=== PATIENT | male | born 1960 | race Caucasian/White ===

== ENCOUNTER 2020-05-19 12:20 | Outpatient (REF) | payer BC, SELFPAY ==
--- NOTE | 2020-05-19 12:37 | XR_ITS ---
EXAMINATION: XR ANKLE, RIGHT CLINICAL INFORMATION: Right ankle pain COMPARISON: None TECHNIQUE: AP, lateral, and mortise views of the right ankle. FINDINGS: There is no fracture or dislocation. The ankle mortise is congruent. No ankle joint effusion. Small plantar heel spur. The soft tissues are unremarkable. IMPRESSION: Small plantar heel spur. Otherwise unremarkable appearance of the right ankle.
== END 2020-05-19 12:21 | disposition home or self-care (01) ==
LOC: HO.XRAY 12:20
PROVIDERS: PCP Internal Medicine; Visit Provider Neuromusculoskeletal Medicine, Sports Medicine
DX: M25.571 Pain in right ankle and joints of right foot (principal)
CPT/HCPCS: 73610

== ENCOUNTER 2021-04-20 11:10 | Outpatient (REF) | payer BC, SELFPAY ==
[2021-04-20 12:40] LABS: MANUAL DIFF FLAG NO
[2021-04-20 12:55] LABS: Basophils Percent Auto 0.5 % (0-2); Eosinophils Absolute Auto 0.1 X10*3/uL (0.0-0.4); Eosinophils Percent Auto 2.2 % (0-4); Hematocrit 43.4 % (42-52); Hemoglobin 14.8 g/dl (14.0-18.0); Imm Gran Abs Auto 0.01 X10*3/uL (0.00-0.03); Imm Gran Pct Auto 0.2 % (0.0-0.4); Lymphocytes Absolute Auto 1.3 X10*3/uL (1.2-4.9); Lymphocytes Percent Auto 32.8 % (20-40); Mean Corpuscular HGB Conc 34.1 g/dl (31.0-36.0); Mean Corpuscular Hemoglobin 30.6 pg (27.0-33.0); Mean Corpuscular Volume 89.7 fL (80-98); Mean Platelet Volume 9.2 fL (9.4-12.4); Monocytes Absolute Auto 0.4 X10*3/uL (0.1-1.2); Monocytes Percent Auto 8.9 % (2-11); Neutrophils Absolute Auto 2.3 X10*3/uL (2.0-8.3); Neutrophils Percent Auto 55.4 % (45-73); Platelet Count 304 X10*3/uL (160-400); Red Blood Count 4.84 X10*6/uL (4.60-5.80); Red Cell Distribution Width 12.2 % (11.0-16.0); White Blood Count 4.1 X10*3/uL (4.8-10.8)
[2021-04-20 14:00] LABS: Alanine Aminotransferase 28 U/L (0-40); Albumin Level 4.6 g/dL (3.5-5.0); Alkaline Phosphatase 69 U/L (39-117); Anion Gap 12 (12-20); Aspartate Amino Transferase 23 U/L (5-37); Blood Urea Nitrogen 13 mg/dL (9-16); Calcium 9.3 mg/dL (8.4-10.2); Carbon Dioxide 27 mmol/L (22-29); Chloride 104 mmol/L (96-108); Cholesterol 181 mg/dL; Estimated Glomerular Filt Rate > 60; Glucose Random 88 mg/dL (60-115); HDL Cholesterol 60 mg/dL; LDL Cholesterol Calculated 111 mg/dl; Potassium 4.9 mmol/L (3.3-5.1); Sodium 138 mmol/L (135-145); Total Protein 7.4 g/dL (6.5-8.0); Triglycerides 52 mg/dL
[2021-04-20 14:37] LABS: Prostate Specific Antigen 2.83 ng/mL (<0.05-4.0)
== END 2021-04-20 11:11 | disposition home or self-care (01) ==
LOC: HO.LAB 11:10
PROVIDERS: PCP Internal Medicine; Visit Provider Internal Medicine
DX: Z12.5 Encounter for screening for malignant neoplasm of prostate (principal); D12.6 Benign neoplasm of colon, unspecified; I34.0 Nonrheumatic mitral (valve) insufficiency; E78.00 Pure hypercholesterolemia, unspecified
CPT/HCPCS: 36415; 80053; 80061; 84153; 85025

== ENCOUNTER 2022-02-12 11:25 | Outpatient (REF) | payer BC, SELFPAY ==
[2022-01-10 13:15] VITALS: BP 114/62; BP 118/62
[2022-02-06 08:09] VITALS: BP 114/54; BMI 25.7
[2022-02-12 13:47] LABS: Alanine Aminotransferase 26 U/L (0-40); Cholesterol 108 mg/dL; HDL Cholesterol 51 mg/dL; LDL Cholesterol Calculated 51 mg/dl; Triglycerides 30 mg/dL
== END 2022-02-12 11:26 | disposition home or self-care (01) ==
LOC: HO.LAB 11:25
PROVIDERS: PCP Internal Medicine; Visit Provider Internal Medicine Cardiovascular Disease
DX: I25.10 Atherosclerotic heart disease of native coronary artery without angina pectoris (principal)
CPT/HCPCS: 36415; 80061; 84460

== ENCOUNTER 2022-07-19 12:43 | Outpatient (REF) | payer BC, SELFPAY ==
[2022-04-12 10:13] VITALS: BP 100/62; BP 104/62; BP 96/56; BMI 25.4
[2022-07-19 13:00] LABS: MANUAL DIFF FLAG NO
[2022-07-19 13:29] LABS: Basophils Percent Auto 0.6 % (0-2); Eosinophils Absolute Auto 0.1 X10*3/uL (0.0-0.4); Eosinophils Percent Auto 2.3 % (0-4); Hematocrit 42.2 % (42.0-52.0); Hemoglobin 14.7 g/dl (14.0-18.0); Imm Gran Abs Auto 0.01 X10*3/uL (0.00-0.03); Imm Gran Pct Auto 0.2 % (0.0-0.4); Lymphocytes Absolute Auto 1.5 X10*3/uL (1.2-4.9); Lymphocytes Percent Auto 31.6 % (20-40); Mean Corpuscular HGB Conc 34.8 g/dl (31.0-36.0); Mean Corpuscular Hemoglobin 31.7 pg (27.0-33.0); Mean Corpuscular Volume 90.9 fL (80.0-98.0); Mean Platelet Volume 9.3 fL (9.4-12.4); Monocytes Absolute Auto 0.4 X10*3/uL (0.1-1.2); Monocytes Percent Auto 7.4 % (2-11); Neutrophils Absolute Auto 2.7 x10*3/uL (2.0-8.3); Neutrophils Percent Auto 57.9 % (45-73); Platelet Count 279 X10*3/uL (160-400); Red Blood Count 4.64 X10*6/uL (4.60-5.80); Red Cell Distribution Width 12.5 % (11.0-16.0); White Blood Count 4.7 X10*3/uL (4.8-10.8)
[2022-07-19 15:20] LABS: Alanine Aminotransferase 25 U/L (0-40); Albumin Level 4.8 g/dL (3.5-5.0); Alkaline Phosphatase 76 U/L (39-117); Anion Gap 12 (12-20); Aspartate Amino Transferase 21 U/L (5-37); Bilirubin Total 0.9 mg/dL (0.0-1.0); Blood Urea Nitrogen 14 mg/dL (9-16); Calcium 9.8 mg/dL (8.4-10.2); Carbon Dioxide 28 mmol/L (22-29); Chloride 105 mmol/L (96-108); Cholesterol 125 mg/dL; Estimated Glomerular Filt Rate > 60; Glucose Random 94 mg/dL (60-115); HDL Cholesterol 54 mg/dL; LDL Cholesterol Calculated 64 mg/dl; Potassium 4.8 mmol/L (3.3-5.1); Sodium 140 mmol/L (135-145); Thyroid Stimulating Hormone 0.71 uIU/mL (0.32-4.0); Total Protein 7.6 g/dL (6.5-8.0); Triglycerides 35 mg/dL
== END 2022-07-19 12:44 | disposition home or self-care (01) ==
LOC: HO.LAB 12:43
PROVIDERS: PCP Internal Medicine; Visit Provider Internal Medicine
DX: I25.10 Atherosclerotic heart disease of native coronary artery without angina pectoris (principal); E78.00 Pure hypercholesterolemia, unspecified; Z12.5 Encounter for screening for malignant neoplasm of prostate
CPT/HCPCS: 36415; 80053; 80061; 84153; 84443; 85025

== ENCOUNTER 2023-03-07 13:45 | Outpatient (REF) | payer BC, SELFPAY ==
[2022-04-12 10:13] VITALS: BP 100/62; BP 104/62; BP 96/56; BMI 25.4
[2023-03-07 13:59] LABS: MANUAL DIFF FLAG NO
[2023-03-07 15:06] LABS: Basophils Percent Auto 0.6 % (0-2); Eosinophils Absolute Auto 0.1 X10*3/uL (0.0-0.4); Eosinophils Percent Auto 2.4 % (0-4); Hematocrit 40.4 % (42.0-52.0); Imm Gran Abs Auto 0.01 X10*3/uL (0.00-0.03); Imm Gran Pct Auto 0.2 % (0.0-0.4); Lymphocytes Absolute Auto 1.4 X10*3/uL (1.2-4.9); Lymphocytes Percent Auto 28.2 % (20-40); Mean Corpuscular HGB Conc 34.7 g/dl (31.0-36.0); Mean Corpuscular Hemoglobin 31.2 pg (27.0-33.0); Mean Platelet Volume 9.6 fL (9.4-12.4); Monocytes Absolute Auto 0.6 X10*3/uL (0.1-1.2); Monocytes Percent Auto 11.7 % (2-11); Neutrophils Absolute Auto 2.8 x10*3/uL (2.0-8.3); Neutrophils Percent Auto 56.9 % (45-73); Platelet Count 229 X10*3/uL (160-400); Red Blood Count 4.49 X10*6/uL (4.60-5.80); Red Cell Distribution Width 11.9 % (11.0-16.0)
[2023-03-07 15:19] LABS: Estimated Average Glucose 103 mg/dL; Hemoglobin A1c % 5.2 %
[2023-03-07 15:52] LABS: Alanine Aminotransferase 25 U/L (0-40); Albumin Level 4.3 g/dL (3.5-5.0); Alkaline Phosphatase 72 U/L (39-117); Anion Gap 14 (12-20); Aspartate Amino Transferase 21 U/L (5-37); Bilirubin Total 0.9 mg/dL (0.0-1.0); Blood Urea Nitrogen 10 mg/dL (9-16); Calcium 9.4 mg/dL (8.4-10.2); Carbon Dioxide 26 mmol/L (22-29); Chloride 106 mmol/L (96-108); Cholesterol 108 mg/dL; Estimated Glomerular Filt Rate > 60; Glucose Random 84 mg/dL (60-115); HDL Cholesterol 56 mg/dL; LDL Cholesterol Calculated 46 mg/dl; Potassium 3.9 mmol/L (3.3-5.1); Sodium 142 mmol/L (135-145); Total Protein 7.3 g/dL (6.5-8.0); Triglycerides 31 mg/dL
[2023-03-07 16:09] LABS: Thyroid Stimulating Hormone 0.67 uIU/mL (0.32-4.0); Vitamin D 25-OH Total 40.6 ng/mL (>30)
== END 2023-03-07 13:46 | disposition home or self-care (01) ==
LOC: HO.LAB 13:45
PROVIDERS: PCP Internal Medicine; Visit Provider Internal Medicine
DX: E78.00 Pure hypercholesterolemia, unspecified (principal); I25.10 Atherosclerotic heart disease of native coronary artery without angina pectoris; D12.6 Benign neoplasm of colon, unspecified; E55.9 Vitamin D deficiency, unspecified; R73.01 Impaired fasting glucose
CPT/HCPCS: 36415; 80053; 80061; 82306; 83036; 84443; 85025

== ENCOUNTER 2023-04-26 12:17 | Outpatient (REF) | payer BC, SELFPAY ==
[2022-04-12 10:13] VITALS: BP 100/62; BP 104/62; BP 96/56; BMI 25.4
--- NOTE | ~2023-04-26 | XR_ITS ---
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 Enthesopathy along the inferior margin of the right greater trochanter. Degenerative changes of the lumbosacral spine. Joint spaces and alignment are otherwise maintained. Soft tissues are unremarkable. XR/XR hip RT w PEL1V IMPRESSION: 1. No acute fracture or dislocation. 2. 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
--- NOTE | ~2023-04-26 | XR_ITS ---
EXAMINATION: XR HAND, RIGHT CLINICAL INFORMATION: Gradual onset worsening pain decreased range of motion COMPARISON: None available. TECHNIQUE: PA, lateral, and oblique views of the right hand. FINDINGS: No acute visible fracture or dislocation. Mild multi joint arthritic changes with joint space narrowing and subchondral cystic changes greatest at the second and third distal interphalangeal joints. Joint spaces and alignment are otherwise maintained. Soft tissues are unremarkable. XR/XR hand RT 2V IMPRESSION: 1. No acute visible fracture or dislocation. 2. Mild multi joint arthritic changes greatest at the second and third distal interphalangeal joints.
== END 2023-04-26 12:18 | disposition home or self-care (01) ==
LOC: HO.XRAY 12:17
PROVIDERS: PCP Internal Medicine; Visit Provider Neuromusculoskeletal Medicine, Sports Medicine
DX: M25.551 Pain in right hip (principal); Z13.89 Encounter for screening for other disorder
CPT/HCPCS: 73120; 73502

== ENCOUNTER 2024-04-01 12:28 | Outpatient (REF) | payer BC, SELFPAY ==
[2022-04-12 10:13] VITALS: BP 100/62; BP 104/62; BP 96/56; BMI 25.4
[2024-04-01 12:59] LABS: MANUAL DIFF FLAG NO
[2024-04-01 13:47] LABS: Basophils Percent Auto 0.7 % (0-2); Eosinophils Absolute Auto 0.1 X10*3/uL (0.0-0.4); Eosinophils Percent Auto 2.7 % (0-4); Hematocrit 40.2 % (42.0-52.0); Lymphocytes Absolute Auto 1.3 X10*3/uL (1.2-4.9); Mean Corpuscular HGB Conc 34.8 g/dl (31.0-36.0); Mean Corpuscular Hemoglobin 31.4 pg (27.0-33.0); Mean Corpuscular Volume 90.1 fL (80.0-98.0); Mean Platelet Volume 9.4 fL (9.4-12.4); Monocytes Absolute Auto 0.4 X10*3/uL (0.1-1.2); Monocytes Percent Auto 8.5 % (2-11); Neutrophils Absolute Auto 2.6 x10*3/uL (2.0-8.3); Neutrophils Percent Auto 58.1 % (45-73); Platelet Count 237 X10*3/uL (160-400); Red Blood Count 4.46 X10*6/uL (4.60-5.80); Red Cell Distribution Width 12.3 % (11.0-16.0); White Blood Count 4.5 X10*3/uL (4.8-10.8)
[2024-04-01 14:00] LABS: Estimated Average Glucose 103 mg/dL; Hemoglobin A1c % 5.2 % (<6.0)
[2024-04-01 14:08] LABS: Appearance Urine Clear; Color Urine Yellow; Glucose Urine UA Negative (Negative); Leukocyte Esterase Urine Negative (Negative); Nitrite Urine Negative (Negative); PH 6.5 (5.0-9.0); Specific Gravity - Urine <= 1.005 (1.005-1.025); Urine Blood Negative (Negative); Urine Ketones Negative (Negative); Urine Protein Negative (Neg-Trace)
[2024-04-01 14:24] LABS: Alanine Aminotransferase 25 U/L (0-40); Albumin Level 4.5 g/dL (3.5-5.0); Alkaline Phosphatase 76 U/L (39-117); Anion Gap 11 (12-20); Aspartate Amino Transferase 22 U/L (5-37); Bilirubin Total 0.8 mg/dL (0.0-1.0); Blood Urea Nitrogen 14 mg/dL (9-16); Calcium 9.8 mg/dL (8.4-10.2); Carbon Dioxide 29 mmol/L (22-29); Chloride 103 mmol/L (96-108); Cholesterol 118 mg/dL (<200); Estimated Glomerular Filt Rate > 60; Glucose Random 90 mg/dL (60-115); HDL Cholesterol 60 mg/dL (>40); LDL Cholesterol Calculated 52 mg/dL (<100); Potassium 4.3 mmol/L (3.3-5.1); Sodium 139 mmol/L (135-145); Total Protein 7.5 g/dL (6.5-8.0); Triglycerides 30 mg/dL (<150)
[2024-04-01 14:39] LABS: Prostate Specific Antigen 2.62 ng/mL (<0.05-4.0)
[2024-04-01 14:40] LABS: Thyroid Stimulating Hormone 0.71 uIU/mL (0.32-4.0)
== END 2024-04-01 12:29 | disposition home or self-care (01) ==
LOC: HO.LAB 12:28
PROVIDERS: PCP Internal Medicine; Visit Provider Internal Medicine
DX: I25.10 Atherosclerotic heart disease of native coronary artery without angina pectoris (principal); Z12.5 Encounter for screening for malignant neoplasm of prostate; Z13.1 Encounter for screening for diabetes mellitus
CPT/HCPCS: 36415; 80053; 80061; 81003; 83036; 84153; 84443; 85025

== ENCOUNTER 2025-04-20 10:33 | Outpatient (REF) | payer BC, SELFPAY ==
[2022-04-12 10:13] VITALS: BP 100/62; BP 104/62; BP 96/56; BMI 25.4
--- OUTSIDE RECORDS SUMMARY | 2025-04-19 10:00 | XMS_ITS | Encounter Summary ---
Author Organization [facility] Address [address] [address] Phone Care Team Providers Care Day Treatment Clinician/Art Therapist Name Role Phone Dwayne Sibley MD Primary Care Provider [phone] Dwayne Sibley MD Unavailable [phone] Ferny Novoa MD Unavailable [phone] Huber Lewis DO Unavailable Reason for Visit * Reason Comments Annual Exam Encounter Details Date Type Department Care Team (Latest Contact Info) Description 04/19/2025 10:00 AM EDT Office Visit [facility] [address] [place], [place] [id number] Dwayne Sibley MD [address] [place] [address] [email or web address] Routine general medical examination at a health care facility (Primary Dx); Need for prophylactic vaccination and inoculation against influenza; Need for pneumococcal 20-valent conjugate vaccination; Screening for prostate cancer; Pure hypercholesterolemia; Atherosclerosis of qawalangin coronary artery of qawalangin heart without angina pectoris; Impaired fasting glucose; Urinary hesitancy; Plantar fasciitis Social History Tobacco Use Types Packs/Day Years Used Date Smoking Tobacco: Former Cigarettes 0.3 12 0 02/06/1982 - 02/06/1994 Smokeless Tobacco: Never Alcohol Use Standard Drinks/Week Comments Yes 0 (1 standard drink = 0.6 oz pur e alcohol) ; 2 mixed drinks a month Child or Family Care Answer Date Record ed Do you have problems with on e of the following making it difficult for you to work, study, or receive health care? No 04/18/2025 Education Answer Date Recorded Are you interested in help w ith more adult education (for example, completing high school, GED, job training, learning the Indonesian language, technical skills, or developing parenting skills)? No 04/18/2025 Are you concerned about learning? Not on file 04/18/2025 No 04/18/2025 Yes 04/18/2025 Food Answer Date Recorded Within the past 6 months we worried whether our food would run out before we got money to buy more. Never True 04/18/2025 Within the past 6 months the food we bought just didn't last and we didn't have enough money to get more. Never True Residential Stability Answer Date Recor ded What is your housing situation today? I have lola sing 04/18/2025 How many times have you move d in the past 12 months? Zero (I did not move) 04/18/2025 Paying for Meds Answer Date Recorded Do you have trouble paying for medicines? No 04/18/2025 Paying Utility Bills Answer Date Record ed Do you have trouble paying your heating or elect ricity bill? No 04/18/2025 Transportation Answer Date Recorded Has the lack of transportati on kept you from medical appointments or from getting medications? No 02/15/2022 Unemployment Answer Date Recorded Are you currently unemployed or working on a part-time or temporary basis, and looking for work? No 02/15/2022 Digital Access Answer Date Recorded No 04/18/2025 Yes 04/18/2025 Do you have reliable internet access at home? Ye s 04/18/2025 Do you have a device (e.g., phone, tablet, computer) with a working camera? Yes 04/18/2025 Intimate Partner Violence Answer Date R ecorded Are you denied basic needs s uch as food, clothing, or medical care? No 04/18/2025 In the past 12 months have y ou been in a relationship with a person who hurts, threatens, or tries to control you? No 04/18/2025 Are you denied basic needs s uch as food, clothing, or medical care? No 04/18/2025 In the past 12 months have y ou been in a relationship with a person who hurts, threatens, or tries to control you? No 04/18/2025 Sex and Gender Information Value Date Recorded Sex Assigned at Not on file Legal Sex Male 9:45 PM EDT Gender Identity Not on file Sexual Orientation Not on file documented as of this encounter Last Filed Vital Signs Vital Sign Reading Time Taken Comments Blood Pressure 110/62 04/19/2025 10:08 AM EDT Pulse 50 04/19/2025 10:08 AM EDT Temperature 35.7 C (96.2 F) 04/19/2025 10:08 AM EDT Respiratory Rate - - Oxygen Saturation 99% 04/19/2025 10:08 AM EDT Inhaled Oxygen Concentration - - Weight 79.8 kg (176 lb) 04/19/2025 10:08 AM EDT Height 170.2 cm (5' 7.01 ) 04/19/2025 10:08 AM E DT Body Mass Index 27.56 04/19/2025 10:08 AM EDT documented in this encounter Progress Notes * Dwayne Sibley MD - 04/19/2025 10:00 AM EDT Subjective Huber Razo is a 64 y.o. male. History of Present Illness Huber Razo is a 64 year old male who presents with plantar fasciitis. He has been experiencing plantar fasciitis in his left foot for approximately two months. The pain,described as 'really annoying', initially localized but has recently spread to the other side of the heel. He has a history of plantar fasciitis, which typically resolves within a week or two, but this episode has been more prolonged. He is managing the condition with icing, occasional use of ibuprofen (2-4 tablets, not daily), massagers, and orthotics. He has an appointment scheduled with a specialist for further evaluation and potential shockwave therapy, a treatment he has undergone in the past with positive results. He is also on a cancellation list to potentially see the specialist sooner. He has been actively trying to manage the condition by purchasing new shoes and using various home remedies such as a frozen water bottle and a steel rolling ball for foot massage. No recent injuryto the foot is reported, and he has experienced plantar fasciitis in both feet in the past. He is currently taking atorvastatin for cholesterol, aspirin, and metoprolol. He has switched from saw palmetto to phygium extract for prostate health. He also has nitroglycerin available if needed. In terms of physical activity, he reports a high level of activity, noting a personal best of 22,000 steps in one day, which he attributes to his work schedule. He has not been playing [employer] as much due to his busy work schedule, which includes early starts and working six days a week. No chest pain or injury to the foot. The patient reports that sometimes urination is slow. No history of allergic reactions to the flu vaccine. The patient has previously received a pneumonia vaccine. He does not get up at night to urinate and denies any current illness or feeling sick. Current Outpatient Medications Ordered in [facility] Medication Sig aspirin 81 MG EC tablet Take 81 mg by mouth daily. atorvastatin (LIPITOR) 80 MG tablet Take 80 mg by mouth daily. azelaic acid (FINACEA) 15 % gel 1 application to affected area Externally Twice a day PRN flaxseed oil Oil Take 1 capsule by mouth daily. fluoride, sodium, (PREVIDENT 5000 BOOSTER) 1.1 % Pste Place 1 Application onto teeth nightly at bedtime. magnesium oxide (MAG-OX) 400 mg (240 mg elemental) tablet Orally Once a day Medication-Free Text Vitamin C 1000 MG by mouth twice daily. Medication-Free Text Jtldhes-Azbtrd-Th Chondr-MSM 057-199-466-83 MG Tablet, Si tablet Orally Twice a day Medication-Free Text Take 2 capsules by mouth daily. Prostate supplement Indications: PYGEUM EXTRACT metoprolol tartrate (LOPRESSOR) 25 MG tablet Take 25 mg by mouth 2 (two) times a day. multivitamins Chew Take 1 tablet by mouth daily. omega-3 fatty acids 1,000 mg Cap 2 Orally Twice a day prasterone, dhea, 25 mg Tab Orally Once daily TURMERIC ORAL Take 1 capsule by mouth 2 (two) times a day. With lorenzo nitroglycerin (NITROSTAT) 0.[address] 0.4 mg under the tongue every 5 (five) minutes as needed for chest pain. (Patient not taking: Reported on 04/19/2025) Review of Systems Constitutional: Negative for unexpected weight change. Respiratory: Negative for cough and shortness of breath. Cardiovascular: Negative for chest pain and palpitations. Gastrointestinal: Positive for abdominal pain and diarrhea. Negative for blood in stool and constipation. Genitourinary: Positive for problems with urination. Negative for blood in urine and erectile dysfunction. Neurological: Negative for dizziness and headaches. Skin: Negative for persistent rash. Objective Physical Exam BP 110/62 (BP Location: Right arm, Patient Position: Sitting, Cuff Size: Medium) Pulse (!) 50 Temp 35.7 ??C (96.2 ??F) (Temporal) Ht 170.2 cm (5' 7.01 ) Wt 79.8 kg (176 lb) SpO2 99% BMI 27.56 kg/m?? HEENT:PERRTL, EOM intact, fundi benign, TM's clear, throat clear. NECK: supple, no thyroid megaly, no adenopathy. LUNGS: clear to A&P,no wheezing/rhonichi/rales. HEART: RRR S1S2 without murmurs, rubs or gallops. ABDOMEN: bowel sounds: normal, soft non tender without masses. EXTREMITIES: without edema, clubbing or cyanosis. : Normal, no hernias or masses. RECTAL: Prostate slightly enlarged, non-tender Assessment & Plan Routine medical exam Plantar fasciitis, left foot Chronic plantar fasciitis, left foot, ongoing for two months. Awaiting specialist for shockwave therapy. - Continue icing and orthotics. - Await specialist appointment for shockwave therapy. Atherosclerotic heart disease of qawalangin coronary artery without angina Coronary artery disease, stable without angina. Regular follow-up with toolmaker. - Continue regular follow-up with Dr. Amezquita. - Scheduled cardiac testing next year. Pure hypercholesterolemia Managed with atorvastatin. Benign prostatic hyperplasia Mild benign prostatic hyperplasia with occasional slow urination. I obtained verbal consent from the patient or their proxy to record this visit for purposes of producing a draft of the encounter documentation. documented in this encounter Plan of Treatment Upcoming Encounters Date Type Department Care Team (Late st Contact Info) Description 11/01/2025 11:00 AM EDT Office Visit [facility] [address] [place] [address] Dawyne Sibley MD [address] [place], [place] [phone] [email or web address] Scheduled Orders Name Type Priority Associated Diagnoses Orde r Schedule Comprehensive metabolic panel Lab Routine Pure hypercholesterolemia Atherosclerosis of qawalangin coronary artery of qawalangin heart without angina pectoris Expected: 04/19/2025, Expires: 04/19/2026 CBC and differential Lab Routine Atherosclerosis of qawalangin coronary artery of qawalangin heart without angina pectoris Expected: 04/19/2025, Expires: 04/19/2026 Lipid panel Lab Routine Pure hypercholesterolemia Atherosclerosis of qawalangin coronary artery of qawalangin heart without angina pectoris Expected: 04/19/2025, Expires: 04/19/2026 TSH with reflex Lab Routine Pure hypercholesterolemia Expected: 04/19/2025, Expires: 04/19/2026 Hemoglobin A1c Lab Routine Impaired fasting glucose Expected: 04/19/2025, Expires: 04/19/2026 PSA (screening) Lab Routine Screening for prostate cancer Expected: 04/19/2025, Expires: 04/19/2026 Urinalysis Lab Routine Urinary hesitancy Expected: 04/19/2025, Expires: 07/19/2025 documented as of this encounter Visit Diagnoses Diagnosis Routine general medical examination at a health care facility- Primary Need for prophylactic vaccination and inoculation against influenza Need for pneumococcal 20-valent conjugate vaccination Screening for prostate cancer Special screening for malignant neoplasm of prostate Pure hypercholesterolemia Atherosclerosis of qawalangin coronary artery of qawalangin heart without angina pectoris Impaired fasting glucose Urinary hesitancy Plantar fasciitis Plantar fascial fibromatosis documented in this encounter Additional Health Concerns Assessment Noted Time PHQ-2 Depression Total Score: 0 04/18/20 25 11:36 AM EDT documented as of this encounter Care Teams Day Treatment Clinician/Art Therapist Relationship Specialty Start Date End Date Dwayne Sibley MD [address] [place] [address] [email or web address] PCP - General 05/23/17 Dwayne Sibley MD [address] [place] [address] [email or web address] Historical LMR Provider 05/25/17 Ferny Novoa MD 10 [facility] [address] [place] [address] [email or web address] Historical LMR Provider 05/25/17 Huber Lewis DO 59 [facility] [address] [place] [address] Osteopathic Manipulative Medicine 02/11/20 documented as of this encounter Additional Source Comments The information contained in this document represents components of the legal health record. It is not the complete legal health record.[facility]
[2025-04-20 10:51] LABS: MANUAL DIFF FLAG NO
[2025-04-20 11:22] LABS: Hematocrit 39.3 % (42.0-52.0); Hemoglobin 13.8 g/dl (14.0-18.0); Imm Gran Abs Auto 0.01 X10*3/uL (0.00-0.03); Imm Gran Pct Auto 0.2 % (0.0-0.4); Lymphocytes Absolute Auto 1.2 X10*3/uL (1.2-4.9); Mean Corpuscular HGB Conc 35.1 g/dl (31.0-36.0); Mean Corpuscular Hemoglobin 31.5 pg (27.0-33.0); Mean Corpuscular Volume 89.7 fL (80.0-98.0); NRBC Abs Auto 0.000 X10*3/uL (0.0-0.012); NRBC Pct Auto 0.0 /100WBC (0.0-0.2); Platelet Count 237 X10*3/uL (160-400); Red Blood Count 4.38 X10*6/uL (4.60-5.80); White Blood Count 5.5 X10*3/uL (4.8-10.8)
[2025-04-20 11:37] LABS: Appearance Urine Clear; Glucose Urine UA Negative (Negative); PH 6.0 (5.0-9.0); Specific Gravity - Urine 1.010 (1.005-1.025)
[2025-04-20 11:48] LABS: Hemoglobin A1C 132.7877 umol/L; Total Hemoglobin (HGBA1C) 3574.5972 umol/L
[2025-04-20 12:06] LABS: Alanine Aminotransferase 29 U/L (0-40); Albumin Level 4.8 g/dL (3.5-5.0); Alkaline Phosphatase 74 U/L (39-117); Anion Gap 13 (12-20); Aspartate Amino Transferase 26 U/L (5-37); Blood Urea Nitrogen 11 mg/dL (9-16); Calcium 9.4 mg/dL (8.4-10.2); Carbon Dioxide 26 mmol/L (22-29); Chloride 107 mmol/L (96-108); Cholesterol 122 mg/dL (<200); Estimated Glomerular Filt Rate > 60; HDL Cholesterol 59 mg/dL (>40); Potassium 4.1 mmol/L (3.3-5.1); Sodium 142 mmol/L (135-145); Total Protein 7.4 g/dL (6.5-8.0); Triglycerides 42 mg/dL (<150)
--- OUTSIDE RECORDS SUMMARY | 2025-04-20 13:56 | XMS_ITS | Encounter Summary ---
Author Organization Located Within [facility] Address [address] [place] [address] Phone Care Team Providers Care Spud Driller Name Role Phone Dwayne Sibley MD Primary Care Provider [phone] Dwayne Sibley MD Unavailable Ferny Novoa MD Unavailable [phone] Huber Lewis DO Unavailable [phone] Encounter Details Date Type Department Care Team (Late st Contact Info) Description 08/12/2023 Procedure Pass [facility]oscopy Admitting Dept Virtual Department [address] [place], [place] [id number] Social History Tobacco Use Types Packs/Day Years Used Date Smoking Tobacco: Former Cigarettes 0.3 12 0 02/06/1982 - 02/06/1994 Smokeless Tobacco: Never Alcohol Use Standard Drinks/Week Comments Yes 0 (1 standard drink = 0.6 oz pur e alcohol) occasionally Child or Family Care Answer Date Record ed Do you have problems with on e of the following making it difficult for you to work, study, or receive health care? No 02/15/2022 Education Answer Date Recorded Are you interested in help w ith more adult education (for example, completing high school, GED, job training, learning the Finnish language, technical skills, or developing parenting skills)? No 03/04/2023 Are you concerned about learning? Not on file 03/04/2023 No 03/04/2023 Yes 03/04/2023 Food Answer Date Recorded Within the past 6 months we worried whether our food would run out before we got money to buy more. Never True 03/04/2023 Within the past 6 months the food we bought just didn't last and we didn't have enough money to get more. Never True Residential Stability Answer Date Recor ded What is your housing situation today? I have lola abreu 03/04/2023 How many times have you move d in the past 12 months? Zero (I did not move) 03/04/2023 Paying for Meds Answer Date Recorded Do you have trouble paying for medicines? No 03/04/2023 Paying Utility Bills Answer Date Record ed Do you have trouble paying your heating or elect ricity bill? No 03/04/2023 Transportation Answer Date Recorded Has the lack of transportati on kept you from medical appointments or from getting medications? No 02/15/2022 Unemployment Answer Date Recorded Are you currently unemployed or working on a part-time or temporary basis, and looking for work? No 02/15/2022 Digital Access Answer Date Recorded No 03/04/2023 Yes 03/04/2023 Do you have reliable internet access at home? Ye s 03/04/2023 Do you have a device (e.g., phone, tablet, computer) with a working camera? Yes 03/04/2023 Sex and Gender Information Value Date Recorded Sex Assigned at Not on file Legal Sex Male 9:45 PM EDT Gender Identity Not on file Sexual Orientation Not on file documented as of this encounter Plan of Treatment Upcoming Encounters Date Type Department Care Team (Late st Contact Info) Description 11/01/2025 11:00 AM EDT Office Visit [facility] [address] [place] [address] Dwayne Sibley MD [address] [place] [address] [email or web address] documented as of this encounter Visit Diagnoses Not on filedocumented in this encounter Additional Health Concerns Infection Onset Date Last Indicated Resolved Time CoV-Risk 09/12/2023 09/12/2023 09/12/2023 12:0 9 PM EST COVID-19 09/12/2023 09/12/2023 10/03/2023 1:21 AM EST Assessment Noted Time PHQ-2 Depression Total Score: 0 03/04/20 23 9:22 PM EDT documented as of this encounter Care Teams Spud Driller Relationship Specialty Start Date End Date Dwayne Sibley MD [address] [place] [address] PCP - General 05/23/17 Dwayne Sibley MD [address] [place] [address] Historical LMR Provider 05/25/17 Ferny Novoa MD 10 [facility] 1 [place] [address] [email or web address] Historical LMR Provider 05/25/17 Huber Lewis DO 59 [facility] [address] [place] [address] Osteopathic Manipulative Medicine 02/11/20 documented as of this encounter Additional Source Comments The information contained in this document represents components of the legal health record. It is not the complete legal health record.[facility]
--- OUTSIDE RECORDS SUMMARY | 2025-04-20 13:56 | XMS_ITS | Patient Health Record ---
Author Organization [facility] Address [address] [facility] [place] [address] Care Team Providers Care Chief Physical Therapist Name Role Phone Dwayne Sibley MD Primary Care Provider Unavaila ble Black, Keri Unavailable [phone] Allergies No Known Allergies Reason For Referral No Information Immunizations Vaccine Route Administration Date Status Comme nts COVID-19 Moderna Vaccine Unknown 06/17/2021 Administere d 10/29/20 11/27/20 Social History Tobacco Use: Social History Observation Description Date Details (start date - stop date) Never Smoker NA - NA Tobacco Use/Smoking Question Answer Notes Are you a: nonsmoker Additional Findings: Tobacco Non-User Current no n-smoker Alcohol Screen Question Answer Notes Did you have a drink containing alcohol in the p ast year? No Points 0 Interpretation Negative Tobacco use other than smoking: Question Answer Notes Are you an other tobacco user? No Problems Problem Type SNOMED Code ICD Code Onset Dates Problem Status W/U Status Risk Notes Problem Localized, primary osteoarthritis of the ankle and/or foot (639336505) Primary osteoarthrit is, right ankle and foot (M19.071) Active confirmed Problem Localized, primary osteoarthritis of the ankle and/or foot (093501433) Primary osteoarthrit is, left ankle and foot (M19.072) Active confirmed Plan Of Treatment Pending Test Test Name Order Date [id number] NAIL, 1-5 05/08/2013 [id number] 10/01/2012 [id number] 04/24/2011 [id number]- Debride <25 sq cm 06/01/2011 92568- Debride <25 sq cm 10/31/2012 [id number] SKIN/TISSUE 05/11/2011, J0702- INJECT TENDON ORIGIN/INSER T 03/14/2012, J0702- INJECT TENDON ORIGIN/INSER T 05/06/2012 Insurance Providers Payer Name Payer Address Payer Phone Subscriber Number Group Number Insured Name Patient Relationship to Insured Coverage Start Date Coverage End Date [facility] [address] [place] [address] [id number] Huber Razo Self - patient is the insured Medical (General) History Medical History History ICD Code chicken pox covid-19 Surgical History Surgery Date(Month/Year) cystectomy finger surgery 01/2021
--- OUTSIDE RECORDS SUMMARY | 2025-04-20 13:56 | XMS_ITS | Clinical Summary ---
Author Organization [facility] Address [address] [facility] [address] [place] [address] Phone Care Team Providers Care Anesthesiologist Physician Name Role Phone Cynthia Sibley MD Primary Care Provider [phone] Cynthia Sibley MD Unavailable Ferny Novoa MD Unavailable [phone] Huber Lewis DO Unavailable Allergies No known active allergies Medications Medication-Jan e Text Vitamin C 1000 MG by mouth twice daily. Active azelaic acid (FINACEA) 15 % gel 1 application to affected area Externally Twice a day PRN Active prasterone, dhea, 25 mg Tab Orally Once daily Active Medication-Jan e Text Glucosa-Chondr- Na [facility]ondr-[facility] [phone] MG Tablet, Si tablet Orally Twice a day Active omega-3 fatty acids 1,000 mg Cap 2 Orally Twice a day Active multivitamins Chew Take 1 tablet by mouth daily. Active magnesium oxide (MAG-OX) 400 mg (240 mg elemental) tablet Orally Once a day Active flaxseed oil Oil Take 1 capsule by mouth daily. Active aspirin 81 MG EC tablet Take 81 mg by mouth daily. Active atorvastatin (LIPITOR) 80 MG tablet Take 80 mg by mouth daily. Active metoprolol tartrate (LOPRESSOR) 25 MG tablet Take 25 mg by mouth 2 (two) times a day. Active nitroglycerin (NITROSTAT) 0.[address] 0.4 mg under the tongue every 5 (five) minutes as needed for chest pain. Active TURMERIC ORAL Take 1 capsule by mouth 2 (two) times a day. With lorenzo Active Medication-Jan e TextIndication s:PYGEUM EXTRACT Take 2 capsules by mouth daily. Prostate supplement Indications: PYGEUM EXTRACT Active fluoride, sodium, (PREVIDENT 5000 BOOSTER) 1.1 % Pste Place 1 Application onto teeth nightly at bedtime. 04/08/20 25 Active SAW PALMETTO ORAL Orally Once daily 025 Discontinued Active Problems Problem Noted Date Diagnosed Date Tubular adenoma of colon 06/05/2018 Overview (02/06/2019): dr cao Mitral valve insufficiency 01/22/2018 Overview (01/22/2018): 01/2018 ECHO 2+MR; EF 65-70% Assessment & Plan (02/03/2019 12:32 PM EDT): Echocardiogram from this year showing slightly reduced mitral valve regurgitation, EF 65 to 70%. Limbs. We will continue to monitor with annual echoes. Assessment & Plan (01/24/2018 11:45 AM EDT): Continuing to do well. Mitral regurgitation is well tolerated at this level. His ECG today is entirely normal at a sinus rate of 69. Unchanged from previous. We'll see him yearly with echocardiograms. Pure hypercholesterolemia 01/22/2018 Assessment & Plan (02/03/2019 12:33 PM EDT): He is due to have lab work in the next couple of weeks, he is not currently on a statin. He takes red yeast rice, no statins at this time. Assessment & Plan (01/24/2018 11:45 AM EDT): Labs are pending. Encounters Date Type Department Care Team Description 04/19/2025 10:00 AM EDT Office Visit [facility] [place] [facility] [address] [place] [address] Cynthia Sibley MD Routine general medical examination at a health care facility (Primary Dx); Need for prophylactic vaccination and inoculation against influenza; Need for pneumococcal 20-valent conjugate vaccination; Screening for prostate cancer; Pure hypercholesterolemia; Atherosclerosis of [place] coronary artery of [place] heart without angina pectoris; Impaired fasting glucose; Urinary hesitancy; Plantar fasciitis from Last 3 Months Immunizations Immunization Administration Dates Next Due COVID-19 (Pre-05/27) Moderna Vaccine, mRNA, PF 06/17/2021,11/27/2020,10/29/2020 Hep A-Hep B 09/14/2016,03/20/2016 INFLUENZA, SPLIT VIRUS, TRIVALENT PF ,06/04/2024,05/18/2016,05/19 INFLUENZA, SPLIT VIRUS, TRIV ALENT W/ PRESERVATIVE IM 07/17/2017,05/06/2014 Influenza Quadrivalent MDCK Preservative Free IM 05/17/2023,05/30/2022,05/15/2018 Influenza Quadrivalent MDCK w/Preservative IM 05/04/2020,07/11/2019 Influenza Quadrivalent Prese rvative Free IM 05/02/2021,07/11/2019,05/18/2016 Pneumococcal conjugate PCV20 04/19/2025 Pneumococcal polysaccharide PPSV23 02/15/2022 Td (adult) 5 Lf Tetanus Toxo id, PF, Adsorbed 03/05/2023,09/05/2002 Tdap 12/19/2012 Zoster live 05/06/2014 Zoster recombinant 06/20/2020 Zoster unspecified formulation 03/19/2020 Family History Medical History Relation Comments Stroke Maternal Grandfather CV disease Mother Diabetes Mother Diabetes mellitus Mother Hypertension Mother Stroke Mother Cancer Paternal Grandfather Cancer Paternal Grandmother Relation Status Comments Brother Alive Father (Age 68) sepsis Maternal Grandfather Mother (Age 84) heart failure abd dm at endmi in 50 s Paternal Grandfather Paternal Grandmother Sister Alive Son 1 Alive Son 2 Alive Social History Tobacco Use Types Packs/Day Years Used Date Smoking Tobacco: Former Cigarettes 0.3 12 0 02/06/1982 - 02/06/1994 Smokeless Tobacco: Never Tobacco Cessation:Counseling Given: Not Answered Alcohol Use Standard Drinks/Week Comments Yes 0 [...] high school, GED, job training, learning the [place] language, technical skills, or developing parenting skills)? [...] on file Sexual Orientation Not on file Last Filed Vital Signs Vital Sign Reading Time Taken Comments Blood Pressure 110/62 04/19/2025 10:08 AM EDT Pulse 50 04/19/2025 10:08 AM EDT Temperature 35.7 C (96.2 F) 04/19/2025 10:08 AM EDT Respiratory Rate 14 03/09/2024 10:07 AM EDT Oxygen Saturation 99% 04/19/2025 10:08 AM EDT Inhaled Oxygen Concentration - - Weight 79.8 kg (176 lb) 04/19/2025 10:08 AM EDT Height 170.2 cm (5' 7.01 ) 04/19/2025 10:08 AM E DT Body Mass Index 27.56 04/19/2025 10:08 AM EDT Plan of Treatment Upcoming Encounters Date Type Department Care Team (Late st Contact Info) Description 11/01/2025 11:00 AM EDT Office Visit [facility] [place] [facility] [address] [place] [address] Cynthia Sibley MD [address] [place] [address] [email or web address] Health Maintenance Due Date Last Done Comments COLOGUARD 2007 FOBT 2007 SIGMOIDOSCOPY 2007 VIRTUAL COLONOSCOPY 2007 FIT TEST 01/17/2018 01/17/2017 ZOSTER VACCINES (3 of 3) 08/15/2020 020, 03/19/2020, 05/06/2014 COVID-19 VACCINE ( season) 2025 06/30/2022, 06/17/2021, 11/27/2020, Additional history exists SCREENING FOR DIABETES 03/07/2026 , 04/20/2021, 02/12/2020 DEPRESSION SCREENING 04/18/2026 04/18/2025 LIPID PANEL 03/07/2028 03/07/2023, 08/0 10/2022, 03/07/2023, Additional history exists Adult Td,Tdap Booster 03/05/2033 03/05/2023 , 12/19/2012, 09/05/2002 COLONOSCOPY 08/12/2033 08/12/2023, 11/0 12/2017, 02/23/2013 COLORECTAL CANCER SCREENING 08/12/2033 RSV VACCINE (1 - 1-dose 75+ series) 2037 HEPATITIS A VACCINES Aged Out 09/14/2016, 03/20/20 16 No longer eligible based on patient's age to complete this topic HEPATITIS C SCREENING Completed 02/12/2020 HIV ONE-TIME SCREENING (18-65 YEARS) Completed 02/12/2020 INFLUENZA VACCINE Completed 04/19/2025, , 05/17/2023, Additional history exists PNEUMOCOCCAL VACCINES (50+ years) Completed 04/19/2025, 02/15/2022 SMOKING STATUS SCREENING (Once After 26 Yrs) Completed 04/19/2025 HIB VACCINES Aged Out No longer eligi ble based on patient's age to complete this topic MENINGOCOCCAL VACCINES (ACWY) Aged Out No longer eligible based on patient's age to complete this topic MENINGOCOCCAL VACCINES (B) Aged Out N o longer eligible based on patient's age to complete this topic Medical Devices Not on file Procedures Procedure Name Priority Date/Time Associated Diagnosis Comments ENDOSCOPY, COLON 08/12/2023 1:15 PM EST OUTSIDE HDL Routine 03/07/2023 OUTSIDE GLUCOSE FASTING Routine 03/07/2023 HEPATITIS C ANTIBODY, QUALITATIVE Routine 02/12/2020 11:45 AM EDT Need for hepatitis C screening test from Last 3 Months or Most Recently Relevant to Health Maintenance Results * ENDOSCOPY, COLON (08/12/2023 1:15 PM EST) Narrative Transcriptions Umberto Hyatt MD - 08/12/2023 1:15 PM EST [facility] Patient Name: Huber Razo Attending MD:: UMBERTO HYATT MD, Procedure Date: 08/12/2023 1:15 PM Date of : 1960 Age: 63 Admit Type: Outpatient Gender: Male Room: [place] [address] Referring MD: CYNTHIA SIBLEY MD Exam Type: Colonoscopy Indications: Surveillance: Personal history of adenomatouspolyps in 2013 last colonoscopy > 5 years ago, Last colonoscopy: June 2018 Medications: Monitored Anesthesia Care Procedure: Informed consent was obtained from the patientafter discussion of the indications, limitations, alternatives, benefits, and risks of the procedure. Risks specifically discussed include but are not limited to medication reactions, missed lesions, bleeding, perforation, or the need for emergent surgery. Throughout the procedure, the patient's blood pressure, pulse, end-tidal CO2, and oxygensaturations were monitored continuously. The Olympus pediatric variable colonoscopePCF-[id number] #6 was introduced through the anus and advanced tothe cecum, identified by the appendiceal orifice, ileocecal valve and palpation. The colonoscopy was performed without difficulty. The patient tolerated the procedure well. The quality of the bowel preparation was excellent. The ileocecal valve, appendiceal orifice, and rectum werephotographed. Complications: No immediate complications. Estimated blood loss: Minimal. Findings: The perianal and digital rectal examinations were normal. Pertinent negatives include normalsphincter tone. A 6 mm polyp was found at 70 cm proximal to theanus. The polyp was sessile. The polyp was removed with a cold snare. Resection and retrieval were complete. Estimated blood loss was minimal. Retroflexion in the right colon was performed. Non-bleeding internal hemorrhoids were found during retroflexion. The hemorrhoids were mild. The exam was otherwise without abnormality ondirect and retroflexion views. Impression: - One 6 mm polyp at 70 cm proximal to the anus, removed with a cold snare. Resected andretrieved. - Non-bleeding internal hemorrhoids. - The examination was otherwise normal on directand retroflexion views. Recommendation: - I will send results of your biopsy to you andyour referring physician or provider. If you do notreceive notification within 3 weeks, please call ouroffice. - Repeat colonoscopy in 7 years for surveillancebased on pathology results. UMBERTO HYATT MD 08/12/2023 1:39:08 PM This report has been signed electronically. Number of Addenda: 0 Note Initiated On: 08/12/2023 1:15 PM Procedure Code(s): --- Professional --- 98324, Colonoscopy, flexible; with removal of tumor(s), polyp(s), or other lesion(s) by snare technique --- Technical --- 18244, Colonoscopy, flexible; with removal of tumor(s), polyp(s), or other lesion(s) by snare technique Diagnosis Code(s): --- Professional --- Z86.010, Personal history of colonic polyps D12.6, Benign neoplasm of colon, unspecified K64.8, Other hemorrhoids --- Technical --- Z86.010, Personal history of colonic polyps D12.6, Benign neoplasm of colon, unspecified K64.8, Other hemorrhoids CPT copyright 2021 [employer]. All rights reserved. The codes documented in this report are preliminary and upon pre coder reviewmay be revised to meet current compliance requirements. Procedure Date: 08/12/2023 1:15:[address] [place] [id number] [place] Cynthia Sibley MD GI PROCEDURE ORDERABLES Final Result * Outside Glucose,Fasting (03/07/2023) Glucose, fasting - External 84 65 - 99 mg/dL Historical Provider LAB BLOOD ORDERABLES Stephanie l Result * Outside HDL (03/07/2023) HDL - External 56 40 - 80 mg/dL Historical Provider LAB BLOOD ORDERABLES Stephanie l Result * Hepatitis C antibody, qualitative (02/12/2020 11:45 AM EDT) Pathologist [facility] HCV NON-REACTIV E NON-REACTI VE [facility] Blood 02/12/2020 11:4 5 AM EDT 02/12/2020 11:47 AM EDT Result [facility] Cynthia Sibley MD LAB BLOOD ORDERABLES Final Re sult Performing Organization Address City/State/[facility] Co de Phone Number [address] [phone] from Last 3 Months or Most Recently Relevant to Health Maintenance Insurance [employer] [facility] [employer] Care Teams Anesthesiologist Physician Relationship Specialty Start Date End Date Cynthia Sibley MD [address] [place] [address] PCP - General 05/23/17 Cynthia Sibley MD [address] [place] [address] Historical LMR Provider 05/25/17 Ferny Novoa MD [address] [address] [email or web address] Historical LMR Provider 05/25/17 Huber Lewis DO [address] [facility] [address] [place] [address] Osteopathic Manipulative Medicine 02/11/20 Additional Source Comments The information contained in this document represents components of the legal health record. It is not the complete legal health record.[facility]
--- OUTSIDE RECORDS SUMMARY | 2025-04-20 13:56 | XMS_ITS | Encounter Summary ---
Author Organization [facility] Address [address] [address] [place] [address] Phone Care Team Providers Care Mobile Paramedical Examiner Name Role Phone Dwayne Sibley MD Primary Care Provider Dwayne Sibley MD Unavailable [phone] Marco A Jackson MD Unavailable [phone] Ferny Novoa MD Unavailable [phone] Huber Lewis DO Unavailable [phone] Encounter Details Date Type Department Care Team (Latest Contact Info) Description [facility]2017 [facility] [address] [place] [address] [address], [address] [place] [address] Marco A Jackson MD [address] [facility], [address] [place] [id number] Aortic valve disorder (Primary Dx) Social History Tobacco Use Types Packs/Day Years Used Date Smoking Tobacco: Never Assessed Sex and Gender Information Value Date Recorded Sex Assigned at Not on file Legal Sex Male 9:45 PM EDT Gender Identity Not on file Sexual Orientation Not on file documented as of this encounter Plan of Treatment Upcoming Encounters Date Type Department Care Team (Late st Contact Info) Description 11/01/2025 11:00 AM EDT Office Visit [facility] [address] [place] [address] Dwayne Sibley MD [address] [place] [address] [email or web address] documented as of this encounter Results * TTE COMPREHENSIVE (01/17/2018 11:38 AM EDT) Anatomical Region Laterality Modality Heart Ultrasound us Marco A Jackson MD CV ECHO ORDERABLES Final Result documented in this encounter Visit Diagnoses Diagnosis Aortic valve disorder- Primary Aortic valve disorders documented in this encounter Additional Health Concerns Infection Onset Date Last Indicated Resolved Time CoV-Risk Comment:Per Ambulatory Triage Form 08/09/2021 08/09/202108/19 1:22 AM EST CoV-Risk 09/12/2023 09/12/2023 09/12/2023 12:0 9 PM EST COVID-19 09/12/2023 09/12/2023 10/03/2023 1:21 AM EST documented as of this encounter Care Teams Mobile Paramedical Examiner Relationship Specialty Start Date End Date Dwayne Sibley MD [address] [place] [address] PCP - General 05/23/17 Dwayne Sibley MD [address] [place] [address] Historical LMR Provider 05/25/17 Marco A Jackson MD [address] [place] [address] Historical LMR Provider 05/25/17 08/12/21 Ferny Novoa MD [address] [place] [address] [email or web address] Historical LMR Provider 05/25/17 Huber Lewis DO [address] [address] Osteopathic Manipulative Medicine 02/11/20 documented as of this encounter Additional Source Comments The information contained in this document represents components of the legal health record. It is not the complete legal health record.[facility]
== END 2025-04-20 10:34 | disposition home or self-care (01) ==
LOC: HO.LAB 10:33
PROVIDERS: PCP Internal Medicine; Visit Provider Internal Medicine
DX: I25.10 Atherosclerotic heart disease of native coronary artery without angina pectoris (principal); R73.01 Impaired fasting glucose; R39.11 Hesitancy of micturition; E78.00 Pure hypercholesterolemia, unspecified; Z12.5 Encounter for screening for malignant neoplasm of prostate
CPT/HCPCS: 36415; 80053; 80061; 81003; 83036; 84153; 84443; 85025